=== PATIENT | female | born 1985 | race Two or more races ===

== ENCOUNTER 2021-09-15 07:36 | Inpatient (IN) | payer OTHER ==
[2021-09-15] MEDS ORDERED: METHYLERGONOVINE 0.2 MG/ML 1 ML AMP IM PRN (08:09)
[2021-09-15] MEDS ORDERED: LIDOCAINE 0.5% (PF) 5 MG/ML (50 ML SDV) SQ PRN (08:09)
[2021-09-15] MEDS ORDERED: CARBOPROST TROMETHAMINE 250 MCG/ML 1 ML AMP IM PRN (08:09)
[2021-09-15] MEDS ORDERED: OXYTOCIN 10 UNIT/ML 1 ML VIAL IM PRN (08:09)
[2021-09-15] MEDS ORDERED: TERBUTALINE 1 MG/ML VIAL SQ PRN (08:09)
[2021-09-15] MEDS ORDERED: OXYTOCIN 30 UNITS/500 ML NS 30 UNIT in SALINE 1 500ML.BAG IV SCH ×2 (08:15→12:45)
[2021-09-15] MEDS ORDERED: AMPICILLIN 2,000 MG in SODIUM CHLORIDE 0.9% 100 ML IVPB STA (08:19)
[2021-09-15] MEDS: LACTATED RINGERS 1,000 ML IV SCH ×2 (08:25→09:30)
--- NOTE | 2021-09-15 08:36 | P.HPOB ---
History of Present Illness H&P Date: 09/15/21 Chief Complaint: Intrauterine at term spontaneou rupture membranes and active labo Marianela is a 36-year-old at 38 weeks gestation who arrives in active labor bisi every 6-8 minutes dilated to 3-4 cm 60% effaced -3 station also had spontaneous rupture membranes with clear fluid noted. Her course has been, complicated by gestational diabetes which also resulted in polyhydramnios. She had been referred to maternal medicine for blood sugar monitoring and was supposed to be faxing walks to the diabetic education at maternal- medicine, but after a number of visits she related that she did not do that and then when I asked her to start breathing and walked is for me to evaluate at approximately 33 weeks she also did not bring me walks. A hemoglobin A1c was ultimately ordered and revealed an elevated hemoglobin A1c. She was supposed to start metformin as was realistically too late to have insulin making dramatic impact on the growth of her baby. Torsion titers were run and were otherwise normal. She and I have discussed and again this morning discussed possible C- section for macrosomia, she's had a baby that was 7 lbs. 13 oz. and this baby is expected be slightly bigger than that last ultrasound had the baby in the 80th to the 90th percentile but abdominal growth is 99th percentile and she was supposed to have another ultrasound this week. She would prefer a trial of labor with the understanding that there is an increased risk for shoulder dystocia resulting in permanent injury to the arm/B brachioplexus, potential for baby to get completely stuck and even have . As of the last ultrasound there is no specific recommendation for her to proceed with a section as the baby is below 4000 g. Her Precis course is also, complicated by recent diagnosis of COVID-19. She did receive monoclonal antibodies following a positive test on Sunday and antibodies were given on Sunday. She does relate she is feeling better. Signs and symptoms of her Covid included chest congestion and sore throat with loss of smell and taste. She's had no respiratory or shortness of breath noted with the process. She is stable at this time with stable vital signs. Her blood pressure is noted to be slightly elevated and preeclamptic labs have been drawn. All the questions are answered for her at this time and will plan to proceed with labor. Pitocin augmentation of labor may be required. She plans to use an epidural for analgesia. Medications and Allergies Allergies Allergy/AdvReac Type Severity Reaction Status Date / Time No Known Allergies Allergy Verified 09/15/21 08:31 Exam Osteopathic Statement: *. No significant issues noted on an osteopathic structural exam other than those noted in the History and Physical/Consult. Intake and Output 09/14/21 09/15/21 09/15/21 22:59 06:59 14:59 Other: Weight 87.543 kg - OBG Physical Exam Breast: both: normal (no masses) Abdomen: bowel sounds normal, no diffuse tenderness, no bruit present, no guarding noted, no hepatomegaly, no splenomegaly, no mass Vulva: both: normal Vagina: normal moisture, no discharge Cervix: no lesion, no discharge Uterus: normal size, normal contour Adnexa: both: normal Anus/Rectum: normal perianal skin, no rectal mass, no hemorrhoids, heme negative
[2021-09-15 08:49] LABS: Basophils % (A) 0 %; Eosinophils # (A) 0.1 k/uL (0-0.7); Eosinophils % (A) 1 %; HCT 41.9 % (34.0-46.0); Lymphocytes # (A) 1.5 k/uL (1.0-4.8); Lymphocytes % (A) 11 %; MCH 29.8 pg (25.0-35.0); MCHC 33.3 g/dL (31.0-37.0); MCV 89.5 fL (80.0-100.0); Mean Platelet Volume 8.3; Monocytes # (A) 0.5 k/uL (0-1.0); Monocytes % (A) 4 %; Neutrophils # (A) 11.8 k/uL (1.3-7.7); Neutrophils % (A) 84 %; Platelet Count 236 k/uL (150-450); RBC 4.68 m/uL (3.80-5.40); RDW 14.5 % (11.5-15.5)
[2021-09-15 08:57] LABS: ALT 14 U/L (4-34); African American GFR (CKD) >90 (>60 ml/min/1.73 sqM); Blood Urea Nitrogen 4 mg/dL (7-17); Non-African American GFR(CKD) >90 (>60 ml/min/1.73 sqM); Uric Acid 3.7 mg/dL (3.7-7.4)
[2021-09-15 08:57] LABS: Glucose,Whole Blood 97 mg/dL (75-99)
[2021-09-15 08:58] LABS: INR 0.9 (<1.2); Prothrombin Time 9.5 sec (9.0-12.0)
[2021-09-15 09:07] LABS: AST 25 U/L (14-36); LDH 607 U/L (313-618)
[2021-09-15] MEDS ORDERED: ROPIVACAINE 100 MG, fentaNYL (PF). 200 MCG in SODIUM CHLORIDE 0.9% 76 ML EPIDURAL ONE (09:54)
[2021-09-15] MEDS ORDERED: LIDOCAINE 1% (PF) 10 MG/ML (30 ML SDV) SQ PRN (11:04)
[2021-09-15 12:01] LABS: Creatinine,Urine Random 117.8 mg/dL; Protein/Creatinine Ratio,Urine 0.085
[2021-09-15 12:15] LABS: Appearance,Urine Clear (Clear); Bilirubin,Urine Negative (Negative); Blood,Urine Small (Negative); Color,Urine Yellow; Glucose,Urine (UA) Negative (Negative); Ketones,Urine 1+ (Negative); Leukocyte Esterase,Urine Negative (Negative); Mucus,Urine Moderate /hpf; Nitrite,Urine Negative (Negative); Protein,Urine Trace (Negative); RBC,Urine 52 /hpf (0-5); Specific Gravity,Urine 1.029 (1.001-1.035); Squamous Epithelial Cell,Urine 2 /hpf (0-4); Urobilinogen,Urine <2.0 mg/dL (<2.0); WBC,Urine 3 /hpf (0-5)
[2021-09-15] MEDS ORDERED: AMPICILLIN 1,000 MG in SODIUM CHLORIDE 0.9% 50 ML IVPB SCH (12:15)
[2021-09-15] MEDS ORDERED: ZOLPIDEM 5 MG TAB PO PRN (12:34)
[2021-09-15] MEDS ORDERED: SIMETHICONE 80 MG CHEWABLE PO PRN (12:34)
[2021-09-15] MEDS ORDERED: BENZOCAINE/MENTHOL SPRAY 1 GM/SPRAY AEROSOL TOPICAL PRN (12:34)
[2021-09-15] MEDS ORDERED: LANOLIN CREAM 5 GM TUBE TOPICAL PRN (12:34)
[2021-09-15] MEDS ORDERED: diphenhydrAMINE 50 MG/ML 1 ML VIAL IVP PRN ×2 (12:34)
[2021-09-15] MEDS ORDERED: diphenhydrAMINE 50 MG CAP PO PRN (12:34)
[2021-09-15] MEDS ORDERED: ACETAMINOPHEN TAB 325 MG TAB PO PRN (12:34)
[2021-09-15] MEDS ORDERED: HYDROCORTISONE 2.5% RECTAL CREAM 30 GM TUBE RECTAL PRN (12:34)
[2021-09-15] MEDS ORDERED: diphenhydrAMINE 25 MG CAP PO PRN (12:34)
[2021-09-15] MEDS: IBUPROFEN 600 MG TAB PO PRN ×2 (13:07→19:42)
--- NOTE | 2021-09-15 16:34 | P.PROBDLV ---
Vaginal Delivery Note - . Vaginal Delivery Note: Pushing with spontaneous vaginal delivery of a viable male over an intact perineum. Falling deliver the head anterior posterior shoulders were easily delivered with gentle downward upper traction followed by the remainder the baby. Mouth nares were then bulb suctioned and baby was placed on mother's abdomen where the umbilical cord was allowed to pulsate for 30 seconds prior to clamping and cutting. Once this was accomplished nursery personnel was present and assumed care. Placenta was then delivered intact Pitocin was added to the IV. There was some bleeding noted and placenta will be sent to pathology possible abruption. scores were 9 and 9 at one and 5 minutes [place] and weight was 7 lbs. 0 oz. Both mother and baby are stable following delivery.
[2021-09-15] MEDS ORDERED: INFLUENZA VACC (6 MOS-64 YRS) 60 MCG/0.5 ML SYRINGE IM ONE (18:58)
[2021-09-15] MEDS: SENNOSIDES-DOCUSATE SODIUM 1 EACH TAB PO SCH (19:42)
[2021-09-16] MEDS: LACTATED RINGERS 1,000 ML IV SCH (03:18)
[2021-09-16 07:06] LABS: Basophils % (A) 0 %; Eosinophils # (A) 0.2 k/uL (0-0.7); Eosinophils % (A) 2 %; HCT 37.5 % (34.0-46.0); HGB 12.5 gm/dL (11.4-16.0); Lymphocytes # (A) 2.2 k/uL (1.0-4.8); Lymphocytes % (A) 19 %; MCH 29.9 pg (25.0-35.0); MCHC 33.3 g/dL (31.0-37.0); Mean Platelet Volume 8.3; Monocytes # (A) 0.5 k/uL (0-1.0); Monocytes % (A) 5 %; Neutrophils # (A) 8.1 k/uL (1.3-7.7); Neutrophils % (A) 72 %; Platelet Count 214 k/uL (150-450); RBC 4.17 m/uL (3.80-5.40); RDW 14.9 % (11.5-15.5); WBC 11.3 k/uL (3.8-10.6)
[2021-09-16] MEDS: IBUPROFEN 600 MG TAB PO PRN ×2 (08:38→15:29)
[2021-09-16] MEDS: SENNOSIDES-DOCUSATE SODIUM 1 EACH TAB PO SCH (08:40)
[2021-09-16 08:49] VITALS: TEMP 96.3
--- NOTE | 2021-09-16 10:45 | P.PNOBGVD ---
Subjective - Subjective Principal diagnosis: day 1 Interval history: Date is doing well this morning. She is ambulating, voiding tolerating her diet. She voices no complaint. Her baby is sore in special care nursery and will therefore not not be ready for discharge today. Continue current care for now. All questions are answered for her at this time. Her vital signs are stable and she is afebrile. Overall she is feeling well even with her Covid. Patient reports: Reports appetite normal, Reports voiding normally, Reports pain well controlled, Reports ambulating normally Guy: in NICU Objective - Latest Vital Signs Latest vital signs: Vital Signs Temp Pulse Resp BP Pulse Ox 09/16/21 08:23 96.3 F L 79 16 130/74 97 09/16/21 04:00 98.1 F 83 16 139/84 97 09/16/21 00:00 96.8 F L 64 16 121/58 96 09/15/21 20:00 96.7 F L 83 16 135/63 97 09/15/21 16:54 96.2 F L 76 17 133/60 09/15/21 14:07 96.9 F L 88 17 131/65 09/15/21 13:37 81 18 121/67 09/15/21 13:07 84 18 129/64 09/15/21 12:52 82 17 125/58 09/15/21 12:37 86 17 121/59 09/15/21 12:22 90 17 122/56 09/15/21 12:07 96.8 F L 86 18 137/65 Intake and Output 09/15/21 09/16/21 09/16/21 22:59 06:59 14:59 Intake Total 2500 Balance 2500 Intake: IV 2500 Invasive Line 1 2500 Other: # Voids 2 2 - Exam Lungs: bilateral: normal Chest: Normal S1, Normal S2 Extremities: Present: normal Abdomen: Present: normal appearance, soft Uterus: Present: normal, firm - Labs Labs: Abnormal Lab Results - Last 24 Hours (Table) 09/15/21 09/16/21 Range/Units 09:45 06:45 WBC 11.3 H (3.8-10.6) k/uL Neutrophils # 8.1 H (1.3-7.7) k/uL Urine Protein Trace H (Negative) Urine Ketones 1+ H (Negative) Urine Blood Small H (Negative) Urine RBC 52 H (0-5) /hpf Urine Mucus Moderate H (None) /hpf
[2021-09-16 15:43] VITALS: BP 125/75; PULSE 87; RESP 18
== END 2021-09-16 16:10 | disposition home or self-care (01) | DRG 805 ==
LOC: FBPOP 07:36 → 4FBP 08:03
PROVIDERS: ADMIT Obstetrics & Gynecology; ATTEND Obstetrics & Gynecology
PROC: 00HU33Z Insertion of Infusion Device into Spinal Canal, Percutaneous Approach (ICD-10-PCS; principal; 2021-09-15)
PROC: 10E0XZZ Delivery of Products of Conception, External Approach (ICD-10-PCS; principal; 2021-09-15)
PROC: 3E0R3NZ Introduction of Analgesics, Hypnotics, Sedatives into Spinal Canal, Percutaneous Approach (ICD-10-PCS; principal; 2021-09-15)
PROC: 3E02340 Introduction of Influenza Vaccine into Muscle, Percutaneous Approach (ICD-10-PCS; 2021-09-15)
DX: O24.429 Gestational diabetes mellitus in childbirth, unspecified control (principal); U07.1 COVID-19; Z37.0 Single live birth; O98.52 Other viral diseases complicating childbirth; O40.3XX0 Polyhydramnios, third trimester, not applicable or unspecified; Z3A.38 38 weeks gestation of pregnancy; Z79.899 Other long term (current) drug therapy; Z23 Encounter for immunization
CPT/HCPCS: 59025; 81001; 82565; 82570; 83615; 84112; 84156; 84450; 84460; 84520; 84550; 85025; 85384; 85610; 85730; 86850; 86900; 86901; 88307; 99213

== ENCOUNTER 2022-09-03 09:47 | Inpatient (IN) | payer OTHER ==
[2022-09-03] MEDS ORDERED: LACTATED RINGERS 1,000 ML IV SCH (11:30)
[2022-09-03 11:41] LABS: Basophils % (A) 0 %; Eosinophils # (A) 0.2 k/uL (0-0.7); Eosinophils % (A) 2 %; HCT 37.3 % (34.0-46.0); Lymphocytes # (A) 1.6 k/uL (1.0-4.8); Lymphocytes % (A) 16 %; MCHC 34.9 g/dL (31.0-37.0); MCV 86.1 fL (80.0-100.0); Mean Platelet Volume 9.6; Monocytes # (A) 0.6 k/uL (0-1.0); Monocytes % (A) 6 %; Neutrophils # (A) 7.8 k/uL (1.3-7.7); Neutrophils % (A) 74 %; Platelet Count 227 k/uL (150-450); RBC 4.33 m/uL (3.80-5.40); RDW 13.9 % (11.5-15.5); WBC 10.5 k/uL (3.8-10.6)
--- NOTE | 2022-09-03 11:47 | US ---
EXAMINATION TYPE: US OB limited DATE OF EXAM: 09/03/2022 COMPARISON: NONE CLINICAL HISTORY: leaking fluid. EXAM PERFORMED: Transabdominal (TA) GESTATIONAL AGE / DATING Physician Established: (37 weeks/4 days) EDC: 09/20/2022 No growth performed on today?s study per ordering physician SURVEY ROBIN: 21.7 cm Polyhydramnios Ultrasound evidence of premature rupture of membranes? NO LIE: Transverse lie with head to maternal left HEART RATE: 132 bpm RHYTHM: Normal IMPRESSION: Single live intrauterine gestation with ROBIN index of polyhydramnios.
[2022-09-03 11:53] LABS: ALT 15 U/L (4-34); AST 17 U/L (14-36); African American GFR (CKD) >90 (>60 ml/min/1.73 sqM); Blood Urea Nitrogen 10 mg/dL (7-17); LDH 362 U/L (313-618); Non-African American GFR(CKD) >90 (>60 ml/min/1.73 sqM); Uric Acid 4.1 mg/dL (3.7-7.4)
[2022-09-03 11:59] LABS: Glucose,Whole Blood 92 mg/dL (70-110)
[2022-09-03] MEDS ORDERED: CITRIC ACID-SODIUM CITRATE 15 ML CUP PO ONE (12:06)
[2022-09-03] MEDS ORDERED: LACTATED RINGERS 1,000 ML IV ONE (12:06)
--- NOTE | 2022-09-03 12:21 | P.HPOB ---
History of Present Illness H&P Date: 09/03/22 Chief Complaint: Leaking of fluid This patient is a pleasant 36-year-old 7 para 4 female estimated date of confinement 09/20/2022 estimated gestational age 37-4/7 weeks who presents to labor and delivery with complaints of gush of fluid at 3 AM this morning with continuous leakage. Patient's amnio sure test is negative and her ROBIN is normal on her speculum exam does show some small amount of fluid in the vaginal vault possible slow leak. care has been complicated by gestational diabetes and some noncompliance with this. Unfortunately the patient was diagnosed with gestational diabetes and was referred to Dr. Hernandez. Patient however was unable to go to any visits with him due to transportation issues. Fasting blood sugars have been elevated and patient ideally would be on insulin however due to again compliance issues and transportation issues she was unable to begin this therapy. I watch sugars closely is possible with nonstress tests and growth ultrasounds however patient has benign unable to come in on a regular basis. Patient's most recent ultrasound also showed an unstable lie and ultrasound today shows to be transverse lie. Patient is also advanced for maternal age and she did have free cell DNA testing done which was normal or has declined maternal medicine evaluation. Patient I did discuss in the office in the event she would need a that she requested permanent sterilization and consent was obtained in the office for this. Plan at this time is to proceed with primary low transverse section due to transverse lie and suspected rupture of membranes. We will also proceed with bilateral partial salpingectomy. Review of Systems Genitourinary: Reports Menstruation: Reports amenorrhea Past Medical History Past Medical History: No Reported History History of Any Multi-Drug Resistant Organisms: None Reported Past Surgical History: No Surgical Hx Reported Past Anesthesia/Blood Transfusion Reactions: No Reported Reaction Past Psychological History: No Psychological Hx Reported Smoking Status: Never smoker Past Alcohol Use History: None Reported Past Drug Use History: None Reported - Past Family History Father Family Medical History: Cancer Additional Family Medical History / Comment(s): Madsen's palsey, skin cancer Medications and Allergies Home Medications Medication Instructions Recorded Confirmed Type No Known Home Medications 09/03/22 09/03/22 History Allergies Allergy/AdvReac Type Severity Reaction Status Date / Time No Known Allergies Allergy Verified 09/15/21 08:31 Exam Intake and Output 09/02/22 09/03/22 09/03/22 22:59 06:59 14:59 Other: Weight 88.451 kg - OBG Physical Exam Abdomen: bowel sounds normal, no diffuse tenderness, no bruit present, no guarding noted, no hepatomegaly, no splenomegaly, no mass Vulva: both: normal Cervix: no lesion, no discharge Uterus: enlarged Results blood work shows she is B+, rubella immune, RPR is nonreactive, HIV is nonreactive, hepatitis B is nonreactive, free cell DNA was 46 XY, she has a negative group B strep (history of positive) AFP testing was negative, anatomy ultrasounds have been normal. Glucola was 171 in the first trimester. Result Diagrams: 09/03/22 11:30 09/03/22 11:30 Abnormal Lab Results - Last 24 Hours (Table) 09/03/22 09/03/22 Range/Units 11:30 11:30 Neutrophils # 7.8 H (1.3-7.7) k/uL Creatinine 0.40 L (0.52-1.04) mg/dL Assessment and Plan Assessment: This is a pleasant 36-year-old 7 para 4 female estimated gestational age 37-4/7 weeks gestation with suspected spontaneous rupture membranes and transverse lie. Patient's also had gestational diabetes that has not really been controlled due to compliance and transportation issues. Plan at this time is to proceed with primary low transverse section and the patient also requests permanent sterilization so we'll do bilateral partial salpingectomy at the time of the surgery. Patient does understand that a tubal ligation is considered permanent. Patient denied also discussed the surgery and she understands surgery has risks including risks of infection, bleeding, possible injury to bowel, bladder, vessels, and/or other organs. All the patient's questions are answered and a written consent is obtained. (1) 37 or more weeks gestation of Current Visit: Yes Status: Acute Code(s): MPX8875 - SNOMED Code(s): 34015023 (2) Spontaneous rupture of amniotic membranes Current Visit: Yes Status: Acute Code(s): BPS3669 - SNOMED Code(s): 792797244 (3) Transverse lie of fetus Current Visit: Yes Status: Acute Code(s): O32.2XX0 - MATERNAL CARE FOR TRANSVERSE AND OBLIQUE LIE, UNSP SNOMED Code(s): 95468156 (4) Uncontrolled diabetes mellitus Current Visit: Yes Status: Acute Code(s): RGH6726 - SNOMED Code(s): 87029683 (5) Noncompliance Current Visit: Yes Status: Acute Code(s): Z91.199 - PT NONCOMPL WITH OTHER MED TRTMT AND REGIMEN D/T UNSP REASON SNOMED Code(s): 4974345 (6) Family planning Current Visit: Yes Status: Acute Code(s): Z30.09 - ENCOUNTER FOR OT GENERAL CNSL AND ADVICE ON CONTRACEPTION SNOMED Code(s): 557093163 (7) Elderly multigravida Current Visit: Yes Status: Acute Code(s): O09.529 - SUPERVISION OF ELDERLY MULTIGRAVIDA, UNSPECIFIED TRIMESTER SNOMED Code(s): 154479803
[2022-09-03] MEDS: LACTATED RINGERS 1,000 ML IV SCH ×2 (12:40→17:56)
[2022-09-03] MEDS ORDERED: NALBUPHINE 10 MG/ML (1 ML AMP) ONE (15:00)
[2022-09-03] MEDS ORDERED: MORPHINE SULFATE (PF) 0.3 MG/0.3 ML SYR ONE (15:00)
[2022-09-03] MEDS ORDERED: ePHEDrine 50 MG/ML 1 ML VIAL ONE (15:00)
[2022-09-03] MEDS ORDERED: KETOROLAC 15 MG/ML 1 ML VIAL ONE (15:00)
[2022-09-03] MEDS ORDERED: ONDANSETRON 4 MG/2 ML VIAL ONE (15:00)
[2022-09-03] MEDS ORDERED: OXYTOCIN 30 UNITS/500 ML NS BAG IV ONE (15:00)
[2022-09-03 15:13] LABS: Appearance,Urine Clear (Clear); Bilirubin,Urine Negative (Negative); Blood,Urine Negative (Negative); Color,Urine Light Yellow; Glucose,Urine (UA) Negative (Negative); Ketones,Urine 2+ (Negative); Leukocyte Esterase,Urine Negative (Negative); Nitrite,Urine Negative (Negative); PH, Urine 6.5 (5.0-8.0); Protein,Urine Negative (Negative); Specific Gravity,Urine 1.012 (1.001-1.035); Urobilinogen,Urine <2.0 mg/dL (<2.0)
[2022-09-03 15:25] LABS: Creatinine,Urine Random 47.8 mg/dL; Protein/Creatinine Ratio,Urine 0.209
[2022-09-03] MEDS ORDERED: ZOLPIDEM 5 MG TAB PO PRN (15:57)
[2022-09-03] MEDS ORDERED: METOCLOPRAMIDE 5 MG/ML 2 ML VIAL IVP PRN (15:57)
[2022-09-03] MEDS ORDERED: diphenhydrAMINE 50 MG/ML 1 ML VIAL IVP PRN (15:57)
[2022-09-03] MEDS ORDERED: diphenhydrAMINE 25 MG CAP PO PRN (15:57)
[2022-09-03] MEDS ORDERED: ONDANSETRON 4 MG/2 ML VIAL IVP PRN (15:57)
[2022-09-03] MEDS ORDERED: LANOLIN CREAM 5 GM TUBE TOPICAL PRN (15:57)
[2022-09-03] MEDS ORDERED: NALOXONE 0.4 MG/ML 1 ML VIAL IV PRN (15:57)
[2022-09-03] MEDS ORDERED: SIMETHICONE 80 MG CHEWABLE PO PRN (15:57)
--- NOTE | 2022-09-03 16:12 | P.OP ---
Date of Procedure: 09/03/22 Preoperative Diagnosis: #1: 37-4/7 week intrauterine . #2: Spontaneous rupture membranes. #3: Transverse lie #4: Uncontrolled diabetes. #5: Elderly multipara. #6: Multi parity desires permanent sterilization #7: Noncompliance Postoperative Diagnosis: Same, nuchal cord 1 Procedure(s) Performed: Primary low transverse section and bilateral partial salpingectomy Anesthesia: spinal Surgeon: Liam Escalera 3Rd Mate #1: Lakia Nguyen Estimated Blood Loss (ml): 670 Pathology: other (Placenta and bilateral fallopian tube segments) Condition: stable Disposition: floor Indications for Procedure: Please see dictated H&P for intimate details of this patient's admission. In brief summary this pleasant 36-year-old 7 para 4 female 37-4/7 weeks gestation presents to labor and delivery with complaints of leaking of fluid since 3 AM this morning. Patient is found to have a transverse lie and suspected rupture membranes. Patient I discussed in the office in the event she needed a because she's had unstable lie the last month that she also requested permanent sterilization. Plan therefore is to proceed with primary section and bilateral partial salpingectomy for control. Patient does understand a tubal ligation is permanent however does have a failure rate of less than 5 per thousand procedures done. She understands that surgery itself and apparently has risks and risks of infection, bleeding, possible injury bowel, bladder, vessels, and/or other organs. All the patient's questions are answered written consent is obtained. Operative Findings: This was a vigorous viable male Apgars 8 and 8 delivery time is 1521 hrs. had a nuchal cord 1 was found to be in the oblique presentation with the head on the mother's left side. Description of Procedure: This patient has a Cole catheter placed to straight drain. She is subsequently taken to the operating room where after the appropriate timeout, spinal an esthetic is achieved without incident. With an adequate level of anesthesia she has abdominal prep and drape. Scalpels and taken a Pfannenstiel skin incision is then made. A second scalpel is taken down to the fascia and the fascia scored with a knife. Fascial incision extended bilaterally using the Sweeney scissors. Fascia is dissected off the rectus muscles sharply. Rectus muscles are and the peritoneum was identified and entered sharply. Peritoneal incision extended superior and inferior without difficulty. This time inspect the uterus 's head appears to be in the left side consistent with oblique presentation. Bladder blade is placed. Scalpels and taken low transverse uterine incision is then made. At this point I enter the uterine cavity bluntly with a hemostat. There is loss of a large amount of clear fluid. 's head is then guided into the incision from the left side. Fundal pressure the infant's head is then delivered. Mouth and nares are bulb suctioned. There is a nuchal cord 1 which is reduced. With more fundal pressure we then have delivery the rest of this infant's body. This is a vigorous viable male Apgars are 8 and 8 delivery time was 1521 hrs. After delivery of the infant the umbilical cord is doubly clamped and cut and appears to be trivascular. The was then handed off to the nurses in attendance. The placenta is then manually extracted intact. Uterus is then externalized uterine incision demarcated with Perdomo clamps. Uterine incision closed using 0 Vicryl running locked fashion 2 layers. Added [id number] stitches placed on the right side. Excellent hemostasis is noted. Internal my attention of left fallopian tube and approximately 4 cm from the cornual insertion a small window is made to the mesial salpinx with Bovie cautery. Using 2-0 silk I doubly ligate a 2 cm segment of the tube. This is excised and handed off to pathology. Cauterization is done of the tubal ends. This completed term attention to the right side and using similar technique a portion of the right fallopian tube is excised. Again excellent hemostasis is noted. Excess fluid is removed from the abdomen and pelvis. The uterus is then placed gently back into the abdomen. The tubal ends were inspected once again and found to be hemostatic. Uterine incision appears to be hemostatic. The parietal peritoneum was then identified and closed using 0 Vicryl running fashion. Rectus muscles reapproximated in 0 Vicryl interrupted fashion. The fascial incision then closed using 0 PDS in a running fashion. Fascial incision is intact and hemostatic. Subcutaneous tissues and closed using a 3-0 Vicryl. Skin is and closed using acosta. All counts are correct 3. There are no complications. will be watched in the special care nursery and the mother was taken to her birthing suite in satisfactory condition.
--- NOTE | 2022-09-03 16:14 | P.MSEPDOC ---
Presenting Problems - Arrival Data Date of Arrival on Unit: 09/03/22 Time of Arrival on Unit: 12:00 Mode of Transport: Ambulatory - Complaint OB-Reason for Admission/Chief Complaint: Rule Out SROM Comment: SROM 0300, amnisure neg and ROBIN 21. Medical History - Information : 5 Para: 4 Term: 4 : 0 Abortions: Spontaneous or Elective: 0 Number of Living Children: 4 - Gestational Age Gestational Age by RUDOLPH (wks/days): 37 Weeks and 4 Days - History Complications: GDM Comment: Diet controlled, blood sugar 92 at 1200 Review of Systems - Review of Systems Constitutional: No problems Breast: No problems ENT: No problems Cardiovascular: No problems Respiratory: No problems Gastrointestinal: No problems Genitourinary: No problems Musculoskeletal: No problems Neurological: No problems Skin: No problems Vital Signs - Temperature Temperature: 97.3 F Temperature Source: Temporal Artery Scan - Pulse Right Standing Brachial Pulse Rate: 106 Pulse Assessment Method: Automatic Cuff - Respirations Respiratory Rate: 18 Oxygen Delivery Method: Room Air O2 Sat by Pulse Oximetry: 98 - Blood Pressure Right Arm Sitting Blood Pressure: 145/87 Blood Pressure Mean: 106 Blood Pressure Source: Automatic Cuff Medical Screen Scoring - Cervical Exam Dilation (cm): 2 Effacement (%): 0 Station: -3 - Assessment - Baby A Baseline FHR: 130 Heart Rate - NICHD Category: Category I (Normal) NST: Reactive Physician Notification - Physician Notified Physician Notified Date: 09/03/22 Physician Notified Time: 12:34 Physician: Liam Escalera New Order Received: Yes - Notification Comment Comment: admit for primary cs with TL Maternal Triage Index - Maternal Triage Index Presenting for scheduled procedure w/no complaint: No - Stat/Priority 1 Stat Priority 1: No - Urgent/Priority 2 Urgent Priority 2: No - Prompt/Priority 3 Prompt Priority 3: No - Non-Urgent/Priority 4 Non-Urgent Priority 4: Yes Criteria Met for Priority 4: transverse lie, elevated BP. Primary cs with tubal today. Disposition - Disposition OB Disposition: Admit Discharge Date: 09/03/22 Discharge Time: 12:34 I agree with the RN Medical Screening Exam: Yes Case reviewed; plan agreed upon as documented in EMR&OBIX.: Yes Diagnosis: RELATED CONDITIONS, UNSPECIFIED, THIRD TRIMESTER
[2022-09-03] MEDS ORDERED: OXYTOCIN 30 UNITS/500 ML NS 30 UNIT in SALINE 1 500ML.BAG IV SCH (18:00)
[2022-09-03] MEDS: SENNOSIDES-DOCUSATE SODIUM 1 EACH TAB PO SCH (19:50)
[2022-09-03] MEDS: ACETAMINOPHEN TAB 500 MG TAB PO SCH (19:50)
[2022-09-03 19:58] VITALS: RESP 16
[2022-09-03] MEDS: IBUPROFEN 600 MG TAB PO SCH (23:08)
[2022-09-03] MEDS: KETOROLAC 15 MG/ML 1 ML VIAL IVP SCH (23:10)
[2022-09-04] MEDS: LACTATED RINGERS 1,000 ML IV SCH (04:19)
[2022-09-04] MEDS: IBUPROFEN 600 MG TAB PO SCH ×4 (04:19→23:44)
[2022-09-04] MEDS: ACETAMINOPHEN TAB 500 MG TAB PO SCH ×4 (04:19→20:48)
[2022-09-04] MEDS: KETOROLAC 15 MG/ML 1 ML VIAL IVP SCH (04:52)
--- NOTE | 2022-09-04 06:38 | P.PNOBGPC ---
Subjective - Subjective Patient reports: Reports appetite normal, Reports voiding normally, Reports pain well controlled, Reports ambulating normally : doing well Objective - Vital Signs Latest vital signs: Vital Signs Temp Pulse Resp BP Pulse Ox 09/04/22 04:00 98.3 F 87 16 106/67 96 09/03/22 23:33 98.0 F 103 H 16 129/80 96 09/03/22 19:57 98.0 F 103 H 16 129/80 96 09/03/22 17:55 97.8 F 89 18 134/74 97 09/03/22 17:25 97.7 F 78 18 136/69 98 09/03/22 16:55 97.3 F L 83 18 124/64 98 09/03/22 16:40 85 114/57 09/03/22 16:25 96.9 F L 91 18 125/67 96 09/03/22 16:14 97.3 F L 106 H 18 145/87 98 09/03/22 16:10 96.9 F L 94 18 126/60 99 09/03/22 15:55 97.2 F L 96 18 123/59 99 09/03/22 10:08 97.3 F L 106 H 18 145/87 98 Intake and Output 09/03/22 09/03/22 09/04/22 14:59 22:59 06:59 Output Total 1672 3310 Balance -1672 -3310 Output: Urine 100 1300 Estimated Blood Loss 670 2010 Output, Quantitative 902 Blood Loss Other: Weight 88.451 kg - Exam Lungs: bilateral: normal Chest: Normal S1, Normal S2 Extremities: Present: normal Abdomen: Present: normal appearance, soft. Absent: distention, tenderness Incision: Present: normal, dry, intact Uterus: Present: normal, firm - Labs Labs: Abnormal Lab Results - Last 24 Hours (Table) 09/03/22 09/03/22 09/03/22 Range/Units 11:30 11:30 14:22 Neutrophils # 7.8 H (1.3-7.7) k/uL Creatinine 0.40 L (0.52-1.04) mg/dL Urine Ketones 2+ H (Negative) Assessment and Plan Assessment: Postoperative day #1. Patient is resting without complaints. Unfortunately her baby is having some respiratory issues and despite our best efforts to keeping him here, he needs to be transferred for a higher level of care. I did explain to her that this most likely that this is a result of the uncontrolled diabetes however certainly to rule out other etiologies including cardiac sources. Patient herself is doing well, her incision is intact and dry, she is having normal lochia. CBC is pending at time of this dictation. I asked her to stay until tomorrow morning because of her recent surgery and she is willing to do this at this point. Plan today is to continue routine postoperative care, check a CBC, advanced to regular diet, and allow the patient to shower. (1) 37 or more weeks gestation of Current Visit: Yes Status: Acute Code(s): ZMN1757 - SNOMED Code(s): 47500094 (2) Spontaneous rupture of amniotic membranes Current Visit: Yes Status: Acute Code(s): PKM3197 - SNOMED Code(s): 703404824 (3) Transverse lie of fetus Current Visit: Yes Status: Acute Code(s): O32.2XX0 - MATERNAL CARE FOR TRANSVERSE AND OBLIQUE LIE, UNSP SNOMED Code(s): 54807042 (4) Uncontrolled diabetes mellitus Current Visit: Yes Status: Acute Code(s): ISL9350 - SNOMED Code(s): 52943827 (5) Noncompliance Current Visit: Yes Status: Acute Code(s): Z91.199 - PT NONCOMPL WITH OTHER MED TRTMT AND REGIMEN D/T UNSP REASON SNOMED Code(s): 5465081 (6) Family planning Current Visit: Yes Status: Acute Code(s): Z30.09 - ENCOUNTER FOR OT GENERAL CNSL AND ADVICE ON CONTRACEPTION SNOMED Code(s): 281780352 (7) Elderly multigravida Current Visit: Yes Status: Acute Code(s): O09.529 - SUPERVISION OF ELDERLY MULTIGRAVIDA, UNSPECIFIED TRIMESTER SNOMED Code(s): 592660166
--- NOTE | 2022-09-04 06:48 | P.PN ---
Progress Note - Text 09/04/22 631am 36-year-old female status post with spinal Duramorph. Patient seen and evaluated for postop pain control, patient has a VAS of 0 with no complains of nausea vomiting. Patient has mild pruritus which should subside soon.
[2022-09-04 08:07] LABS: Basophils % (A) 0 %; Eosinophils # (A) 0.1 k/uL (0-0.7); Eosinophils % (A) 1 %; HCT 32.2 % (34.0-46.0); HGB 10.9 gm/dL (11.4-16.0); Lymphocytes # (A) 1.4 k/uL (1.0-4.8); Lymphocytes % (A) 14 %; MCH 29.4 pg (25.0-35.0); MCV 86.2 fL (80.0-100.0); Mean Platelet Volume 9.7; Monocytes # (A) 0.6 k/uL (0-1.0); Monocytes % (A) 6 %; Neutrophils # (A) 7.8 k/uL (1.3-7.7); Neutrophils % (A) 76 %; Platelet Count 187 k/uL (150-450); RBC 3.73 m/uL (3.80-5.40); RDW 13.8 % (11.5-15.5); WBC 10.3 k/uL (3.8-10.6)
[2022-09-04] MEDS: SENNOSIDES-DOCUSATE SODIUM 1 EACH TAB PO SCH ×2 (08:49→20:51)
[2022-09-05] MEDS: ACETAMINOPHEN TAB 500 MG TAB PO SCH (04:00)
[2022-09-05] MEDS: IBUPROFEN 600 MG TAB PO SCH (06:18)
--- NOTE | 2022-09-05 06:32 | P.PNOBGPC ---
Subjective - Subjective Patient reports: Reports appetite normal, Reports voiding normally, Reports pain well controlled, Reports ambulating normally : doing well, in NICU Objective - Vital Signs Latest vital signs: Vital Signs Temp Pulse Resp BP Pulse Ox 09/05/22 00:00 97.7 F 99 16 122/76 09/04/22 16:00 98.3 F 85 16 132/78 09/04/22 15:57 98 09/04/22 12:00 97.6 F 94 16 117/72 98 09/04/22 08:00 98.3 F 104 H 16 100/66 96 Intake and Output 09/04/22 09/04/22 09/05/22 14:59 22:59 06:59 Other: # Voids 2 - Exam Lungs: bilateral: normal Chest: Normal S1, Normal S2 Extremities: Present: normal Abdomen: Present: normal appearance, soft. Absent: distention, tenderness Incision: Present: normal, dry, intact Uterus: Present: normal, firm - Labs Labs: Abnormal Lab Results - Last 24 Hours (Table) 09/04/22 09/04/22 Range/Units 07:50 07:50 RBC 3.73 L (3.80-5.40) m/uL Hgb 10.9 L (11.4-16.0) gm/dL Hct 32.2 L (34.0-46.0) % Neutrophils # 7.8 H (1.3-7.7) k/uL Hemoglobin A1c 6.5 H (0.0-6.0) % Assessment and Plan Assessment: Postoperative day #2. Patient is resting without complaints. Vital signs are stable she is afebrile. Uterus is firm nontender her incision is intact and dry. Patient's CBC is fine however her hemoglobin A1c did return at 6.5. I had a discussion with her about the possible pre-gestational her persistent diabetes and she'll follow-up with Dr. Serrato in 3 months for repeat. Patient's baby was transferred yesterday respiratory issues per her report is now on CPAP doing well. Patient does wish to go home. Patient's felt stable for discharge home follow up with me in 1 week. (1) 37 or more weeks gestation of Current Visit: Yes Status: Acute Code(s): [id number] - SNOMED Code(s): 41 433446 (2) Spontaneous rupture of amniotic membranes Current Visit: Yes Status: Acute Code(s): STC4584 - SNOMED Code(s): 657891226 (3) Transverse lie of fetus Current Visit: Yes Status: Acute Code(s): O32.2XX0 - MATERNAL CARE FOR TRANSVERSE AND OBLIQUE LIE, UNSP SNOMED Code(s): 76630543 (4) Uncontrolled diabetes mellitus Current Visit: Yes Status: Acute Code(s): ZKC1209 - SNOMED Code(s): 03368312 (5) Noncompliance Current Visit: Yes Status: Acute Code(s): Z91.199 - PT NONCOMPL WITH OTHER MED TRTMT AND REGIMEN D/T UNSP REASON SNOMED Code(s): 6115319 (6) Family planning Current Visit: Yes Status: Acute Code(s): Z30.09 - ENCOUNTER FOR OT GENERAL CNSL AND ADVICE ON CONTRACEPTION SNOMED Code(s): 485506385 (7) Elderly multigravida Current Visit: Yes Status: Acute Code(s): O09.529 - SUPERVISION OF ELDERLY MULTIGRAVIDA, UNSPECIFIED TRIMESTER SNOMED Code(s): 211898122
--- NOTE | 2022-09-05 06:37 | P.DS ---
Providers Date of admission: 09/03/22 11:55 Expected date of discharge: 09/05/22 Attending physician: Liam Escalera Primary care physician: Stated None - Discharge Diagnosis(es) (1) 37 or more weeks gestation of Current Visit: Yes Status: Acute (2) Spontaneous rupture of amniotic membranes Current Visit: Yes Status: Acute (3) Transverse lie of fetus Current Visit: Yes Status: Acute (4) Uncontrolled diabetes mellitus Current Visit: Yes Status: Acute (5) Noncompliance Current Visit: Yes Status: Acute (6) Family planning Current Visit: Yes Status: Acute (7) Elderly multigravida Current Visit: Yes Status: Acute Hospital Course: Please see dictated H&P for intimate details of this patient's admission. Brief summary this pleasant 36-year-old 7 para 4 female 37-4/7 weeks gestation admitted to labor and delivery with rupture membranes, transfer lie and requesting permanent sterilization. Patient did have uncontrolled diabetes throughout the . Patient subsequently underwent a primary low transverse section and bilateral partial salpingectomy for a viable male . the patient did do well however her baby needed to be transferred to respiratory issues. On #2 patient's felt be stable for discharge home follow up with me in 1 week. Procedures: Primary low transverse section and bilateral partial salpingectomy Patient Condition at Discharge: Good Plan - Discharge Summary New Discharge Prescriptions: New Ibuprofen [Motrin] 600 mg PO Q6H #40 tab oxyCODONE HCL [OxyIR] 5 mg PO Q4HR PRN #18 tab PRN Reason: Pain Scale 4 - 6 Discharge Medication List Ibuprofen [Motrin] 600 mg PO Q6H #40 tab 09/04/22 [Rx] oxyCODONE HCL [OxyIR] 5 mg PO Q4HR PRN #18 tab 09/04/22 [Rx] Follow up Appointment(s)/Referral(s): Liam Escalera MD [STAFF PHYSICIAN] - 1 Week (Please see me in 1 week for an incision check and also in 6 weeks for check.) Patient Instructions/Handouts: (DC), Gestational Diabetes Diet (DC), Diabetes Insipidus (ED) Activity/Diet/Wound Care/Special Instructions: No heavy lifting or strenuous activity for 6 weeks. No intercourse or anything per vagina for 6 weeks. Please call if any fever, chills, excessive vaginal bleeding, and/or abdominal pain. Discharge Disposition: HOME SELF-CARE
[2022-09-05 09:14] VITALS: BP 132/70; PULSE 85; TEMP 98
== END 2022-09-05 09:05 | disposition home or self-care (01) | DRG 785 ==
LOC: FBPOP 09:47 → 4FBP 11:55
PROVIDERS: ADMIT Obstetrics & Gynecology; ATTEND Obstetrics & Gynecology
PROC: 0UB70ZZ Excision of Bilateral Fallopian Tubes, Open Approach (ICD-10-PCS; 2022-09-03)
PROC: 10D00Z1 Extraction of Products of Conception, Low, Open Approach (ICD-10-PCS; principal; 2022-09-03 15:00)
DX: O32.2XX0 Maternal care for transverse and oblique lie, not applicable or unspecified (principal); E11.65 Type 2 diabetes mellitus with hyperglycemia; O24.420 Gestational diabetes mellitus in childbirth, diet controlled; L29.9 Pruritus, unspecified; O69.81X0 Labor and delivery complicated by cord around neck, without compression, not applicable or unspecified; Z30.2 Encounter for sterilization; Z37.0 Single live birth; Z3A.37 37 weeks gestation of pregnancy; Z91.199 Patient's noncompliance with other medical treatment and regimen due to unspecified reason
CPT/HCPCS: 59025; 76815; 81003; 82565; 82570; 83036; 83615; 84112; 84156; 84450; 84460; 84520; 84550; 85025; 86850; 86900; 86901; 88302; 88307; 99213

== ENCOUNTER → 2024-02-29 | Outpatient (CLI) | payer OTHER ==
--- NOTE | 2024-03-04 13:22 | MM ---
Reason for Exam: Screening (asymptomatic). Patient History: Menarche at age 12. First Full-Term at age 25. Currently using Hormonal Contraceptives, starting at age 38. Maternal cousin had breast cancer, bilateral, under age 50. Last menstrual period: Risk Values: Ely 5 year model risk: 0.4%. NCI Lifetime model risk: 10.0%. Prior Study Comparison: No prior studies available for comparison. Tissue Density: The breasts are heterogeneously dense, which may obscure small masses. Findings: Analyzed By CAD. Bilateral masslike fibroglandular tissue on 2-D imaging. Further evaluation with 3-D imaging and compression recommended. Overall Assessment: Incomplete: need additional imaging evaluation, BI-RAD 0 Management: Diagnostic Mammogram of both breasts. [facility] will attempt to contact patient to return for supplemental views and ultrasound if indicated. Patient should continue monthly self-breast exams. A clinical breast exam by your physician is recommended on an annual basis. This exam should not preclude additional follow-up of suspicious palpable abnormalities. Note on Ely scores and lifetime risk: 1. A Ely score greater than 3% is considered moderate risk. If this is the case, consider specialist referral to assess eligibility for a risk reducing agent. 2. If overall lifetime risk for the development of breast cancer is 20% or higher, the patient may qualify for future screening with alternating mammogram and breast MRI. Electronically signed and approved by: Gregory Franco DO
== END | disposition home or self-care (01) ==
LOC: RADMAMWWP 16:17
PROVIDERS: ATTEND Family Medicine
DX: Z12.31 Encounter for screening mammogram for malignant neoplasm of breast (principal); Z80.3 Family history of malignant neoplasm of breast
CPT/HCPCS: 77067

== ENCOUNTER → 2024-03-21 | Outpatient (CLI) | payer OTHER ==
--- NOTE | 2024-03-21 15:16 | MM ---
Reason for Exam: Additional evaluation requested from abnormal screening. Last screening mammogram was performed less than 1 month ago. Patient History: Menarche at age 12. First Full-Term at age 25. Currently using Hormonal Contraceptives, starting at age 38. Maternal cousin had breast cancer, bilateral, under age 50. Risk Values: Ely 5 year model risk: 0.4%. NCI Lifetime model risk: 10.0%. Prior Study Comparison: 02/29/2024 Bilateral MG screening mammo w CAD, [facility]. Tissue Density: The breasts are heterogeneously dense, which may obscure small masses. Findings: Analyzed By CAD. Nodular density 1:00 position right breast proximally 7 cm from the nipple measuring 7 mm. Ultrasound is recommended. Nodular density upper outer left breast 8 cm from the nipple measuring 5 to 6 mm. Ultrasound is recommended. Overall Assessment: Incomplete: need additional imaging evaluation, BI-RAD 0 Management: Diagnostic Breast Ultrasound of both breasts. . Results were given to the patient verbally at the time of exam. Patient should continue monthly self-breast exams. A clinical breast exam by your physician is recommended on an annual basis. This exam should not preclude additional follow-up of suspicious palpable abnormalities. Note on Ely scores and lifetime risk: 1. A Ely score greater than 3% is considered moderate risk. If this is the case, consider specialist referral to assess eligibility for a risk reducing agent. 2. If overall lifetime risk for the development of breast cancer is 20% or higher, the patient may qualify for future screening with alternating mammogram and breast MRI. Electronically signed and approved by: Tanvir Ridley M.D. Radiologis
--- NOTE | 2024-03-21 15:40 | USB ---
Reason for Exam: Additional evaluation requested from abnormal screening. Patient History: Menarche at age 12. First Full-Term at age 25. Currently using Hormonal Contraceptives, starting at age 38. Maternal cousin had breast cancer, bilateral, under age 50. Risk Values: Ely 5 year model risk: 0.4%. NCI Lifetime model risk: 10.0%. Technique: Method: Targeted. Prior Study Comparison: 02/29/2024 Bilateral MG screening mammo w CAD, [facility]. Findings: The upper outer quadrant of the left breast, the upper inner quadrant of the right breast, the axilla of both breasts and the retroareolar of both breasts were scanned. Clustered cysts are noted bilaterally in a linear pattern measuring up to 1 cm on the right and up to 1.4 cm on the left. Retroareolar ducts are seen on the left. No solid masses are evident at this time. Overall Assessment: Probably benign, BI-RAD 3 Management: Diagnostic Breast Ultrasound of both breasts in 6 months. A clinical breast exam by your physician is recommended on an annual basis and results should be correlated with mammographic findings. This exam should not preclude additional follow-up of suspicious palpable abnormalities. Results were given to the patient verbally at the time of exam. Electronically signed and approved by: Tanvir Ridley M.D. Radiologis
== END | disposition home or self-care (01) ==
LOC: RADMAMWWP 14:45
PROVIDERS: ATTEND Family Medicine
DX: R92.333 Mammographic heterogeneous density, bilateral breasts (principal); R92.8 Other abnormal and inconclusive findings on diagnostic imaging of breast; Z80.3 Family history of malignant neoplasm of breast
CPT/HCPCS: 77066; 76642; G0279; 77062